=== PATIENT | male | born 1960 | race Caucasian/White ===

== ENCOUNTER 2020-04-07 16:38 | Emergency (ER) | payer OTHER ==
[~2020-04-07] VITALS: Ht 170.2 cm; Wt 68.0 kg
[2020-04-07 16:42] VITALS: Ht 170.2 cm; Wt 68.0 kg
[2020-04-07 17:32] LABS: BASOPHIL % 0.2 % (0-2); PLATELET COUNT 287 x10^3mcL (130-400); RED CELL DISTRIBUTION WIDTH 13.7 % (11.5-14.5)
[2020-04-07 17:41] LABS: CALCIUM 8.6 mg/dL (8.5-10.1); CARBON DIOXIDE 30.1 mmol/L (21-32); CHLORIDE SERUM 102 mmol/L (98-107); CREATININE SERUM 0.9 mg/dL (0.7-1.3); GFR1 > 60 mL/min; GLUCOSE SERUM 163 mg/dL (74-106); POTASSIUM SERUM 3.3 mmol/L (3.5-5.1); SODIUM SERUM 139 mmol/L (136-145)
[2020-04-07 17:46] LABS: ALBUMIN 3.9 g/dL (3.4-5.0); ALKALINE PHOSPHATASE 134 U/L (46-116); ALT/SGPT 24 U/L (16-63); AST/SGOT 18 U/L (15-37); BILIRUBIN TOTAL 0.2 mg/dL (0.20-1.00); TOTAL PROTEIN, SERUM 7.6 g/dL (6.4-8.2)
[2020-04-07 19:07] VITALS: BP 145/86
== END 2020-04-07 19:07 | disposition home or self-care (01) ==
LOC: ED 16:38
PROVIDERS: Emergency Medicine
DX: R42 Dizziness and giddiness (principal); J45.909 Unspecified asthma, uncomplicated; I10 Essential (primary) hypertension; Z91.011 Allergy to milk products